=== PATIENT | male | born 1965 | race Caucasian/White ===

== ENCOUNTER 2017-06-27 14:13 | Emergency (ER) | payer OTHER ==
[~2017-06-27] VITALS: Ht 177.8 cm; Wt 70.8 kg
[2017-06-27 15:36] VITALS: BP 159/64
== END 2017-06-27 15:36 | disposition home or self-care (01) ==
LOC: ED 14:13
DX: S80.862A Insect bite (nonvenomous), left lower leg, initial encounter (principal); L03.116 Cellulitis of left lower limb; I10 Essential (primary) hypertension; F17.200 Nicotine dependence, unspecified, uncomplicated; Z88.6 Allergy status to analgesic agent; Z71.6 Tobacco abuse counseling; W57.XXXA Bitten or stung by nonvenomous insect and other nonvenomous arthropods, initial encounter; Y93.89 Activity, other specified; Y99.8 Other external cause status; Y92.89 Other specified places as the place of occurrence of the external cause
CPT/HCPCS: 99406

== ENCOUNTER 2017-06-29 21:39 | Emergency (ER) | payer OTHER ==
[~2017-06-29] VITALS: Ht 175.3 cm; Wt 69.8 kg
[2017-06-29 23:35] VITALS: BP 138/95
== END 2017-06-29 23:35 | disposition home or self-care (01) ==
LOC: ED 21:39
DX: L03.116 Cellulitis of left lower limb (principal); I12.9 Hypertensive chronic kidney disease with stage 1 through stage 4 chronic kidney disease, or unspecified chronic kidney disease; N18.9 Chronic kidney disease, unspecified

== ENCOUNTER 2017-06-30 06:42 | Emergency (ER) | payer OTHER ==
[2017-06-30 07:46] VITALS: BP 142/111
== END 2017-06-30 07:46 | disposition home or self-care (01) ==
LOC: ED 06:42
DX: L02.416 Cutaneous abscess of left lower limb (principal); I10 Essential (primary) hypertension; F17.200 Nicotine dependence, unspecified, uncomplicated; Z88.8 Allergy status to other drugs, medicaments and biological substances
CPT/HCPCS: J2001; J3490

== ENCOUNTER 2017-07-02 05:19 | Emergency (ER) | payer OTHER ==
[2017-07-02 06:11] VITALS: BP 138/88
== END 2017-07-02 06:11 | disposition home or self-care (01) ==
LOC: ED 05:19
DX: Z48.01 Encounter for change or removal of surgical wound dressing (principal); I10 Essential (primary) hypertension; Z88.6 Allergy status to analgesic agent; Z88.8 Allergy status to other drugs, medicaments and biological substances

== ENCOUNTER 2017-07-04 16:24 | Emergency (ER) | payer OTHER ==
[~2017-07-04] VITALS: Ht 177.8 cm; Wt 68.9 kg
[2017-07-04 16:38] VITALS: BP 155/117
== END 2017-07-04 17:18 | disposition home or self-care (01) ==
LOC: ED 16:24
DX: Z48.01 Encounter for change or removal of surgical wound dressing (principal)

== ENCOUNTER 2017-07-06 10:49 | Emergency (ER) | payer OTHER ==
[2017-07-06 11:49] VITALS: BP 139/79
== END 2017-07-06 11:06 | disposition home or self-care (01) ==
LOC: ED 10:49
DX: Z48.02 Encounter for removal of sutures (principal); R03.0 Elevated blood-pressure reading, without diagnosis of hypertension; F17.210 Nicotine dependence, cigarettes, uncomplicated; Z88.6 Allergy status to analgesic agent; Q61.3 Polycystic kidney, unspecified
CPT/HCPCS: 90715; 99406

== ENCOUNTER 2017-07-20 19:47 | Emergency (ER) | payer OTHER ==
[2017-07-21 01:24] VITALS: BP 135/90
== END 2017-07-21 01:24 | disposition home or self-care (01) ==
LOC: ED 19:47
DX: L02.412 Cutaneous abscess of left axilla (principal); I10 Essential (primary) hypertension; Q61.3 Polycystic kidney, unspecified; Z88.6 Allergy status to analgesic agent; Z88.8 Allergy status to other drugs, medicaments and biological substances
CPT/HCPCS: J2001

== ENCOUNTER 2017-07-22 17:00 | Emergency (ER) | payer OTHER ==
[2017-07-22 19:23] VITALS: BP 110/65
== END 2017-07-22 19:23 | disposition home or self-care (01) ==
LOC: ED 17:00
DX: Z48.01 Encounter for change or removal of surgical wound dressing (principal); Z88.6 Allergy status to analgesic agent; Z88.5 Allergy status to narcotic agent; Z88.1 Allergy status to other antibiotic agents; I10 Essential (primary) hypertension

== ENCOUNTER 2017-08-20 13:27 | Emergency (ER) | payer OTHER ==
[~2017-08-20] VITALS: Ht 177.8 cm; Wt 75.7 kg
[2017-08-20 18:50] VITALS: BP 138/91
== END 2017-08-20 18:15 | disposition home or self-care (01) ==
LOC: ED 13:27
DX: L02.411 Cutaneous abscess of right axilla (principal); L03.111 Cellulitis of right axilla; I10 Essential (primary) hypertension; Z88.6 Allergy status to analgesic agent; Z88.8 Allergy status to other drugs, medicaments and biological substances
CPT/HCPCS: J2001

== ENCOUNTER 2017-08-22 11:50 | Emergency (ER) | payer OTHER ==
[~2017-08-22] VITALS: Ht 177.8 cm; Wt 71.4 kg
[2017-08-22 13:40] VITALS: BP 135/97
== END 2017-08-22 13:40 | disposition home or self-care (01) ==
LOC: ED 11:50
DX: Z48.01 Encounter for change or removal of surgical wound dressing (principal)

== ENCOUNTER 2017-10-29 13:24 | Emergency (ER) | payer OTHER ==
[~2017-10-29] VITALS: Ht 167.6 cm; Wt 74.8 kg
[2017-10-29 13:26] VITALS: Ht 167.6 cm; Wt 74.8 kg
[2017-10-29 14:02] LABS: BASOPHIL % 1.2 % (0-2); PLATELET COUNT 255 x10^3mcL (130-400); RED CELL DISTRIBUTION WIDTH 14.4 % (11.5-14.5)
[2017-10-29 14:16] LABS: CALCIUM 9.5 mg/dL (8.5-10.1); CARBON DIOXIDE 31.3 mmol/L (21-32); CHLORIDE SERUM 103 mmol/L (98-107); CREATININE SERUM 1.1 mg/dL (0.7-1.3); GFR1 > 60 mL/min; GLUCOSE SERUM 100 mg/dL (74-106); POTASSIUM SERUM 4.5 mmol/L (3.5-5.1); SODIUM SERUM 142 mmol/L (136-145)
[2017-10-29 14:20] LABS: ALBUMIN 3.7 g/dL (3.4-5.0); ALKALINE PHOSPHATASE 60 U/L (46-116); ALT/SGPT 12 U/L (16-63); AST/SGOT 17 U/L (15-37); BILIRUBIN TOTAL 0.42 mg/dL (0.20-1.00); TOTAL PROTEIN, SERUM 7.5 g/dL (6.4-8.2)
[2017-10-29 15:37] VITALS: BP 137/83
== END 2017-10-29 15:37 | disposition home or self-care (01) ==
LOC: ED 13:24
PROVIDERS: Emergency Medicine
DX: R07.89 Other chest pain (principal); I10 Essential (primary) hypertension; Z88.6 Allergy status to analgesic agent; Z88.5 Allergy status to narcotic agent; Z88.8 Allergy status to other drugs, medicaments and biological substances
CPT/HCPCS: 36415; 83880

== ENCOUNTER 2018-07-07 00:15 | Inpatient (IN) | payer OTHER ==
[~2018-07-07] VITALS: Ht 177.8 cm; Wt 72.1 kg
[2018-07-07 00:20] VITALS: Ht 177.8 cm; Wt 72.1 kg
[2018-07-07 00:59] LABS: BASOPHIL % 0.5 % (0-2); PLATELET COUNT 258 x10^3mcL (130-400); RED CELL DISTRIBUTION WIDTH 13.9 % (11.5-14.5)
[2018-07-07 01:09] LABS: CALCIUM 9.4 mg/dL (8.5-10.1); CARBON DIOXIDE 31.9 mmol/L (21-32); CHLORIDE SERUM 104 mmol/L (98-107); CREATININE SERUM 1.3 mg/dL (0.7-1.3); GFR1 > 60 mL/min; GLUCOSE SERUM 102 mg/dL (74-106); POTASSIUM SERUM 3.9 mmol/L (3.5-5.1); SODIUM SERUM 143 mmol/L (136-145)
[2018-07-07 01:21] LABS: ALBUMIN 3.7 g/dL (3.4-5.0); ALKALINE PHOSPHATASE 65 U/L (46-116); ALT/SGPT 17 U/L (16-63); AST/SGOT 13 U/L (15-37); BILIRUBIN TOTAL 0.39 mg/dL (0.20-1.00)
[2018-07-07 01:50] LABS: AMPHETAMINE QUAL UR NONE DETECTED (See below)
[2018-07-07] MEDS ORDERED: ASPIR 8181 MG PO (02:28)
[2018-07-07] MEDS ORDERED: TYLENOL325 M2 PO (02:28)
[2018-07-07 03:12] VITALS: BP 114/86
[2018-07-07 06:37] LABS: CHOLESTEROL/HDL RATIO 3.8
[2018-07-07 09:47] VITALS: BP 113/82
[2018-07-07 12:33] VITALS: BP 124/103
[2018-07-07 12:38] VITALS: BP 124/103; BP 129/92
[2018-07-07 14:24] VITALS: BP 129/92
== END 2018-07-07 14:54 | disposition home or self-care (01) | DRG 203 ==
LOC: ED 00:15 → DU 02:30
PROVIDERS: Emergency Medicine; Internal Medicine Pulmonary Disease
DX: R07.89 Other chest pain (principal); Q61.3 Polycystic kidney, unspecified; F12.10 Cannabis abuse, uncomplicated; I10 Essential (primary) hypertension; F15.11 Other stimulant abuse, in remission; F17.210 Nicotine dependence, cigarettes, uncomplicated; Z88.8 Allergy status to other drugs, medicaments and biological substances; D72.829 Elevated white blood cell count, unspecified
CPT/HCPCS: 83880; 85378; J1650; J2270

== ENCOUNTER 2018-10-25 13:19 | Emergency (ER) | payer OTHER ==
[~2018-10-25] VITALS: Ht 177.8 cm; Wt 71.2 kg
[~2018-10-25 13:19] MED LIST: ASPIR 8181 MG PO; TYLENOL325 M2 PO
[2018-10-25 14:29] VITALS: Ht 177.8 cm; Wt 71.2 kg
[2018-10-25 15:11] LABS: BASOPHIL % 0.8 % (0-2); PLATELET COUNT 263 x10^3mcL (130-400); RED CELL DISTRIBUTION WIDTH 13.8 % (11.5-14.5)
[2018-10-25 15:27] LABS: CALCIUM 9.8 mg/dL (8.5-10.1); CARBON DIOXIDE 33.3 mmol/L (21-32); CHLORIDE SERUM 103 mmol/L (98-107); CREATININE SERUM 1.2 mg/dL (0.7-1.3); GFR1 > 60 mL/min; GLUCOSE SERUM 99 mg/dL (74-106); POTASSIUM SERUM 4.2 mmol/L (3.5-5.1); SODIUM SERUM 142 mmol/L (136-145)
[2018-10-25 15:32] LABS: ALBUMIN 3.8 g/dL (3.4-5.0); ALKALINE PHOSPHATASE 70 U/L (46-116); ALT/SGPT 16 U/L (16-63); AST/SGOT 18 U/L (15-37); LIPASE 104 IU/L (73-393); TOTAL PROTEIN, SERUM 7.9 g/dL (6.4-8.2)
[2018-10-25 16:54] VITALS: BP 135/76
== END 2018-10-25 16:54 | disposition home or self-care (01) ==
LOC: ED 13:19
PROVIDERS: Emergency Medicine
DX: N40.0 Benign prostatic hyperplasia without lower urinary tract symptoms (principal); N20.0 Calculus of kidney; F17.200 Nicotine dependence, unspecified, uncomplicated; I10 Essential (primary) hypertension; Z88.6 Allergy status to analgesic agent; Z88.8 Allergy status to other drugs, medicaments and biological substances; Z91.048 Other nonmedicinal substance allergy status
CPT/HCPCS: 99406; J2405; J7030

== ENCOUNTER 2019-06-19 15:53 | Inpatient (IN) | payer OTHER ==
[~2019-06-19] VITALS: Ht 175.3 cm; Wt 73.0 kg
[2019-06-19 15:55] VITALS: Ht 175.3 cm; Wt 73.0 kg
--- NOTE | 2019-06-19 16:00 | NUR ---
EKG DONE AND DR WHITING AT BEDSIDE FOR MD CONTRERAS. PT PLACED ON CM, CRASH CART BROUGHT TO BEDSIDE, PT AWAKE AND ALERT, SPEAKING TO DOCTOR.
--- NOTE | 2019-06-19 16:01 | NUR ---
PT ALSO STS HX POLYCYSTIC KIDNEY DISEASE AND COPD
--- NOTE | 2019-06-19 16:01 | NUR ---
DEFIB PADS PLACED ON PT, RT AKASH AT BEDSIDE
--- NOTE | 2019-06-19 16:16 | NUR ---
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
--- NOTE | 2019-06-19 16:23 | NUR ---
PORTABLE CXR AT BEDSIDE
--- NOTE | 2019-06-19 16:30 | NUR ---
PT DENIES BURNING CHEST PAIN AT THIS TIME, SINUS TACYCARDIA ON CM, BP STABLE RAD MADE AWARE
[2019-06-19 16:40] LABS: BASOPHIL % 0.5 % (0-2); PLATELET COUNT 233 x10^3mcL (130-400); RED CELL DISTRIBUTION WIDTH 13.6 % (11.5-14.5)
[2019-06-19] MEDS ORDERED: FLOMAX0.4 MG PO (16:41)
[2019-06-19] MEDS ORDERED: METOPROLOL SUCC50 M2 PO (16:41)
[2019-06-19] MEDS ORDERED: INCRUSE EL62.5 MCG/A (16:42)
--- NOTE | 2019-06-19 16:44 | NUR ---
RAD AT BEDSIDE
[2019-06-19 16:45] LABS: CALCIUM 9.3 mg/dL (8.5-10.1); CHLORIDE SERUM 106 mmol/L (98-107); GFR1 > 60 mL/min; GLUCOSE SERUM 138 mg/dL (74-106); POTASSIUM SERUM 3.3 mmol/L (3.5-5.1); SODIUM SERUM 144 mmol/L (136-145)
--- NOTE | 2019-06-19 16:49 | NUR ---
FLORESITA UNVERIFIED ON EMAR, PHARAMLUZ MADE AWARE
[2019-06-19 16:52] LABS: ALKALINE PHOSPHATASE 63 U/L (46-116); ALT/SGPT 12 U/L (16-63); AST/SGOT 20 U/L (15-37); BILIRUBIN TOTAL 0.47 mg/dL (0.20-1.00); TOTAL PROTEIN, SERUM 6.9 g/dL (6.4-8.2)
[2019-06-19 16:53] LABS: ALBUMIN 3.3 g/dL (3.4-5.0)
--- NOTE | 2019-06-19 16:59 | NUR ---
PT RESTING IN POSITION OF COMFORT ON HIS PHONE, RESPS E/U, VSS, NSR ON CM, WILL CONTINUE TO MONITOR
--- NOTE | 2019-06-19 17:45 | NUR ---
PT RESTING IN POSITION OF COMFORT, RESPS E/U, VSS, NSR ON CM, CALL LIGHT WITHING REACH, WILL CONTINUE TO MONITOR
--- NOTE | 2019-06-19 18:23 | NUR ---
PT DENIES NEED FOR O2 AT THIS TIME, PT SPO2 98 PERCENT VIA RM, VSS, NSR ON CM, PT IN NAD ON HIS PHONE PLAYING GAMES, WILL CONTINUE TO MONITOR
--- NOTE | 2019-06-19 19:16 | NUR ---
REPORT GIVEN TO CAM PARK RN WHO IS RESUMING CARE OF PT AT THIS TIME
--- NOTE | 2019-06-19 20:22 | NUR ---
PT REPORT CALLED TO [facility] TO ASSUME PT CARE.
--- NOTE | 2019-06-19 20:29 | NUR ---
PT TRANSFERRED TO [facility] BY [facility] BY [facility] AND [facility] EMT. PT ON FULL CM FOR TRANSPORT. PT AOX4, RESP EVEN AND UNLABORED, NO ACUTE DISTRESS NOTED. PT ACCEPTED BY [facility] TO ASSUME PT CARE. PT AMBULATED WITH STEADY GAIT FROM [facility] TO BED WITHOUT INCIDENT.
[2019-06-19 21:17] VITALS: BP 113/87
--- NOTE | 2019-06-19 21:28 | NUR ---
RECEIVED PT FROM ER, PT ADMIT FOR WIDE COMPLEX TACHY, A.FIB. PT IS A/O X4, VERBAL RESPONSIVE, LUNG SOUND CLEAR BILATERAL,NO COUGH, NO SOB, PT IS ON TELE 6, A.FIB. DENY ANY CHEST PAIN OR DISCOMFORT AT THIS MOMENT. BOWEL SOUND PRESENT ALL 4 QUADRANTS, NO DISTENTION, NO TENDER. PEDAL PULSE PRESENT BOTH FEET, NO EDEMA IV AT LEFT FA, NO LEAKING, NO INFILTRATION. ALL ADLS ASSIST, ALL NEED MET, CALL LIGHT IN REACH, WILL CONTINUE TO MONITOR.
[2019-06-20 04:56] VITALS: BP 103/76
[2019-06-20 06:32] LABS: CALCIUM 8.8 mg/dL (8.5-10.1); CARBON DIOXIDE 27.3 mmol/L (21-32); CHLORIDE SERUM 109 mmol/L (98-107); CREATININE SERUM 1.1 mg/dL (0.7-1.3); GFR1 > 60 mL/min; GLUCOSE SERUM 89 mg/dL (74-106); MAGNESIUM 1.5 mg/dL (1.8-2.4); POTASSIUM SERUM 4.4 mmol/L (3.5-5.1); SODIUM SERUM 143 mmol/L (136-145)
[2019-06-20 06:35] LABS: BASOPHIL % 0.5 % (0-2); PLATELET COUNT 217 x10^3mcL (130-400); RED CELL DISTRIBUTION WIDTH 13.7 % (11.5-14.5)
[2019-06-20 06:46] LABS: FREE T4 1.14 ng/dL (0.76-1.46); FREE THYROXINE INDEX 3.4 ug/dL (1.4-4.5); T4(THYROXINE) 9.2 ug/dL (4.7-13.3)
--- NOTE | 2019-06-20 06:48 | NUR ---
PATIENT RESTING IN BED. RESPIRATION EVEN AND UNLABORED, ON ROOM AIR. DENIES DISCOMFORT/PAIN AT THIS TIME. SALINE LOCK TO LEFT HAND PATENT AND INTACT. ASSISTED WITH NEEDS. SAFETY OBSERVED. PLACED BED IN THE LOWEST POSITION. PLACED CALL LIGHT WITHIN REACH AT ALL TIMES.
[2019-06-20 07:19] LABS: T3 TOTAL 1.4 ng/mL
--- NOTE | 2019-06-20 07:20 | NUR ---
AAO X4.DENIES ANY PAIN/DISCOMFORT.LUNGS CLEAR.ON AFIB ON THE MONITOR HR=60.IV SALINE LOCKED.CALL LIGHT WITHIN REACH.INSTRUCTED TO CALL FOR ANY PAIN/DISCOMFORT.WILL CONTINUE TO MONITOR PT.
[2019-06-20 09:22] VITALS: BP 105/73
[2019-06-20 13:11] VITALS: BP 128/90
--- NOTE | 2019-06-20 15:59 | NUR ---
GAVE PT TYLENOL FOR C/O H/A AT 5/10 PAIN SCALE.WILL CONTINUE TO MONITOR.
--- NOTE | 2019-06-20 16:31 | NUR ---
PT CONVERTED TO NSR AT 1421. AWARE. WENT TO SEE PT PER PT IS CLEAR ON HIS STAND POINT.
--- NOTE | 2019-06-20 16:38 | NUR ---
RECHECKED PAIN LEVEL CLAIMS H/A IS GONE.
--- NOTE | 2019-06-20 16:50 | NUR ---
INFORMED PT IS OK TO GO PER .DR ZALDIVAR WILL DO PT'S D/C ORDER.
[2019-06-20] MEDS ORDERED: CARDIZEM CD240 MG PO (16:52)
[2019-06-20 16:58] VITALS: BP 128/90
[2019-06-20 17:00] VITALS: BP 136/96
--- NOTE | 2019-06-20 17:44 | NUR ---
PT D/C TO HOME IV AND MONITOR D/C'D.RX AND D/C INSTRUCTION GIVEN.PT VERBALIZES UNDERSTANDING.WENT DOWN AMBULATORY ACCOMPANIED BY FRIEND AND ACCOUNTANT BOOKKEEPER.
== END 2019-06-20 17:47 | disposition home or self-care (01) | DRG 201 ==
LOC: ED 15:53 → DU 18:39
PROVIDERS: ADMIT Internal Medicine Pulmonary Disease
DX: I48.0 Paroxysmal atrial fibrillation (principal); E83.42 Hypomagnesemia; F17.210 Nicotine dependence, cigarettes, uncomplicated; F12.90 Cannabis use, unspecified, uncomplicated; J44.9 Chronic obstructive pulmonary disease, unspecified; I10 Essential (primary) hypertension; Z88.6 Allergy status to analgesic agent; Z88.5 Allergy status to narcotic agent; Z88.8 Allergy status to other drugs, medicaments and biological substances; Z79.899 Other long term (current) drug therapy; Z23 Encounter for immunization
CPT/HCPCS: 83880; 84439; 90732; G0378; J3475; J3490; J7030; J7050; Q0092